=== PATIENT | male | born 1945 | race Caucasian/White ===

== ENCOUNTER → 2018-11-22 10:20 | Outpatient (CLI) | payer MEDICARE, OTHER, SELFPAY ==
--- NOTE | 2018-11-22 10:22 | DI.US.S_ITS ---
PROCEDURE: US PERIPH VENOUS LOW EXTREM RT INDICATIONS: RIGHT LEG SWELLING TECHNIQUE: Real-time imaging, as well as color and pulse Doppler interrogation, were performed of the lower extremity deep veins from the inguinal ligament to the popliteal fossa. COMPARISON: None. FINDINGS: The common femoral, femoral and popliteal veins are normally compressible, and free of intraluminal thrombus. Color and pulse Doppler demonstrate normal phasic intraluminal flow. There is normal augmentation response to distal compression maneuver. IMPRESSION: No deep venous thrombosis identified within the right lower extremity. Dictated by: Yeison CARR Interpreted: Brandie Camarillo MD on 11/22/2018 at 12:13 Approved by: Brandie Camarillo M.D. on 11/22/2018 at 14:10
== END ==
PROVIDERS: PCP Hospitalist; Visit Provider Hospitalist
DX: M79.89 Other specified soft tissue disorders (principal)
CPT/HCPCS: 93971

== ENCOUNTER → 2018-11-27 09:50 | Outpatient (CLI) | payer MEDICARE, OTHER, SELFPAY ==
[2018-11-27 10:17] LABS: BUN Creatinine Ratio 21.4 (6-22); Blood Urea Nitrogen 15 mg/dL (9-20); Estimated Glomerular Filt Rate > 60.0 mL/min (>60)
== END ==
PROVIDERS: PCP Hospitalist; Visit Provider Hospitalist
DX: I25.10 Atherosclerotic heart disease of native coronary artery without angina pectoris (principal); I65.29 Occlusion and stenosis of unspecified carotid artery
CPT/HCPCS: 36415; 82565; 84520

== ENCOUNTER → 2018-11-27 10:01 | Outpatient (CLI) | payer MEDICARE, OTHER, SELFPAY ==
--- NOTE | 2018-11-27 10:59 | DI.CT.S_ITS ---
PROCEDURE: CT ANGIO HEAD AND NECK INDICATIONS: vision loss TECHNIQUE: Pre-contrast 4.5 mm thick sections acquired from the foramen magnum to the vertex. After the administration of intravenous contrast, 1 mm thick sections acquired from the aortic arch through the [place] of [place]. Post-contrast 4.5 mm thick sections then re-acquired from the foramen magnum to the vertex. 3-dimensional htjrdsn-jtxyaiwkh-cckxxahyrw (MIP) and/or volume rendering reformats were acquired of the central intracranial vasculature and neck separately. COMPARISON: None. FINDINGS: Image quality: Excellent. BRAIN: The ventricular system and cortical sulci demonstrate atrophy, consistent for the patient's stated age. There are areas of hypodensity within the periventricular and subcortical white matter. There is no acute intra-or extra axial fluid collection. Old lacunar ischemia is noted in the left basal ganglia. No acute hemorrhage, mass lesion or midline shift. Brainstem is unremarkable. Globes are symmetrical. Sinuses are aerated. Osseous structures are intact. . HEAD CT ANGIOGRAPHY: Anterior circulation: The anterior circulation, including the anterior cerebral, as well as the internal carotid arteries demonstrates no areas of hemodynamically significant stenosis, vascular occlusion or aneurysmal dilation. There is occlusion of the left middle cerebral artery at its origin. Very minimal appearance partially visualized atretic middle cerebral artery vasculature is noted. 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 Posterior circulation: The posterior circulation demonstrates a vertebral artery codominance. Basilar artery and posterior cerebral arteries demonstrate no areas of hemodynamically significant stenosis, vascular occlusion or aneurysmal dilation. Posterior communicating arteries are within normal limits. NECK CT ANGIOGRAPHY: The origins of the left and right common and external carotid arteries demonstrate no areas of hemodynamically significant stenosis, vascular occlusion or aneurysmal dilation. There is an approximate 1.5 cm focus of high grade stenosis, with short segment near-complete occlusion in the proximal right internal carotid artery. Significant vascular calcifications are present. There is an approximate 7 mm focus of high grade stenosis/near occlusion at the origin of the left internal carotid artery with significant vascular calcifications. Origins of the left and right vertebral arteries demonstrate no areas of hemodynamically significant stenosis, vascular occlusion or aneurysmal dilation. Aortic arch demonstrates conventional anatomy. Limited, visualized portions left subclavian vasculature demonstrate a questionable focus of mural thrombus versus artifact approximately 3.4 cm from the origin of the aorta. Lung apices demonstrate prominent areas of peripheral bulla formation. CT chest may be obtained for further evaluation as indicated. IMPRESSION: 1. 1. No acute intracranial process. 2. Mild to moderate atrophy and chronic microvascular ischemic changes. 3. Bilateral high grade stenosis with areas of near occlusion in the proximal internal carotid arteries bilaterally as above. 4. 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 There is no surrounding parenchymal appearance of infarction. The above findings were discussed with Dr. Rama Pressley on 11/26/18 3:45pm. Any quantitative measurements of stenosis were performed using NASCET criteria. Dictated by: Brandie Camarillo M.D. on 11/27/2018 at 15:27 Approved by: Brandie Camarillo M.D. on 11/27/2018 at 15:51
== END ==
PROVIDERS: PCP Hospitalist; Visit Provider Hospitalist
DX: H54.7 Unspecified visual loss (principal); I65.23 Occlusion and stenosis of bilateral carotid arteries; I66.02 Occlusion and stenosis of left middle cerebral artery; I25.10 Atherosclerotic heart disease of native coronary artery without angina pectoris
CPT/HCPCS: 36415; 70496; 70498; 82565; 84520; Q9967

== ENCOUNTER → 2018-11-29 19:21 | Outpatient (CLI) | payer MEDICARE, OTHER, SELFPAY | PROVIDERS: Family Provider Hospitalist; PCP Hospitalist; Visit Provider Hospitalist | DX: I99.9 Unspecified disorder of circulatory system (principal); Z53.20 Procedure and treatment not carried out because of patient's decision for unspecified reasons ==

== ENCOUNTER → 2019-04-30 12:48 | Outpatient (CLI) | payer MEDICARE, OTHER, SELFPAY ==
[2019-05-06 09:43] LABS: Fecal Immunochemical Test NOT DETECTED (NOT DETECTED)
== END ==
PROVIDERS: PCP Hospitalist; Visit Provider Hospitalist
DX: I10 Essential (primary) hypertension (principal)
CPT/HCPCS: 82274

== ENCOUNTER 2019-05-20 09:32 | Day surgery (SDC) | payer MEDICARE, OTHER, SELFPAY ==
[2019-05-20] VITALS (8 sets, daily range): BP systolic 97–144; BP diastolic 50–68; PULSE 55–68; RESP 8–19; TEMP 36.4–36.6; O2SAT 97–100; BMI 33.1
--- NOTE | 2019-05-20 | PATH_ITS ---
[facility] Accession Number: [id number] . 01 Material submitted: . rectum - RECTAL POLYP . 02 Diagnosis: Rectum, Polyp: Tubulovillous adenoma, fragmented. Negative for high-grade dysplasia or malignancy. [facility] 05/21/2019 1540 Local . 02 Electronically signed: . Roosevelt Adair MD, PhD, Pathologist NPI- [id number] . 01 Gross description: . RECTAL POLYP: Received in formalin are multiple fragment(s) of [place], soft tissue measuring 0.1 x 0.1 x 0.1 cm to 1.5 x 1.0 x 0.7 cm which is entirely submitted and submitted entirely in 3 cassette(s) /DM 05/20/2019 2217 Local . 02 Pathologist provided ICD-10: D12.8 . 02 CPT . 464299 Performed at: 01 [facility] [address] [facility], [place], [place] [id number] MD Helio Haque MD Phone: [phone] Performed at: 02 [facility] [place] [address] [place], [place] [id number] MD Tammie Yates MD Phone: [phone]
[2019-05-20] MEDS: SODIUM CHLORIDE 0.9% 1,000 ML 200 ML IV ×2 (10:19→11:33)
--- NOTE | 2019-05-20 10:36 | PM.PREOP ---
Pre-operative Note Interval Note History & Physical reviewed/Exam performed by Physician: Yes Changes to H&P: No ASA Class (for procedural sedation): III
[2019-05-20] MEDS: PIPERACILLIN-TAZO 3.375 GM/50 ML FROZ.PIGGY IV (10:40)
[2019-05-20] MEDS: MIDAZOLAM 5 MG/5 ML VIAL IV (10:47)
[2019-05-20] MEDS: fentaNYL 250 MCG/5 ML INJ IV (10:47)
--- NOTE | 2019-05-20 11:31 | PM.OP.ENDO ---
Operative Date/Time/Diagnoses Date of procedure: 05/20/19 Time of procedure: 11:31 Pre-op diagnosis: Screening colonoscopy Post-op diagnosis: same Procedure & Clinicians Study performed: Colonoscopy Same procedure as scheduled: Yes Indications: 73-year-old male last colonoscopy 10 years ago normal presents for routine screening. Surgeon: Joaquin Chaudhary Procedure Notes SCOAP/Timeout: Performed Procedure in detail: Patient placed in left lateral decubitus position. Time out was performed. Procedural sedation was administered with Versed and Fentanyl. A rectal exam demonstrated no external hemorrhoids no internal masses. Colonoscopy scope was placed into the rectum and advanced through the colon to the cecum. The ileocecal valve was identified. The scope was then slowly withdrawn examining colon thoroughly in all directions. The colonoscopy was notable for the following 1. Sigmoid diverticulosis 2. 4 cm sessile adenomatous appearing polyp at 15 cm from the anal verge. Removed with snare electrocautery in multiple large pieces. Cauterized base of polyp given currently on Plavix. Hemostatic The site of the polyp was tattooed with 4 mL of methylene blue. 3. Quality of prep fair Scope withdrawal time: 30 Sedation minutes: 45 Findings: polyp Specimen(s): other (Polyp) Impression: Rectal polyp Post-procedure Recommendations: Other recommendation (Will likely require referral to Colorectal surgery for completion polypectomy based on pathology) Disposition: same day surgery
--- NOTE | 2019-05-20 11:53 | SUR.PHASEI ---
Denies nausea, pain, light-headedness, or dizziness when HOB elevated. Coffee given.
--- NOTE | 2019-05-20 12:42 | SUR.PHASEII ---
Dr natividad sevilla, returned call, asked aout pts f/u, informed pt of what was said. Both and pt voiced an understanding. Pt left when ready and left in stable condition.
== END 2019-05-20 12:39 | disposition home or self-care (01) ==
PROVIDERS: PCP Hospitalist; Visit Provider Surgery
PROC: 0DJD8ZZ Inspection of Lower Intestinal Tract, Via Natural or Artificial Opening Endoscopic (ICD-10-PCS; CPT 45378; principal; 2019-05-20 11:00)
DX: Z12.11 Encounter for screening for malignant neoplasm of colon (principal); Z79.01 Long term (current) use of anticoagulants; I25.10 Atherosclerotic heart disease of native coronary artery without angina pectoris; I10 Essential (primary) hypertension; E78.5 Hyperlipidemia, unspecified; I73.9 Peripheral vascular disease, unspecified; I73.89 Other specified peripheral vascular diseases; D12.8 Benign neoplasm of rectum; K57.30 Diverticulosis of large intestine without perforation or abscess without bleeding
CPT/HCPCS: 45385; 45381; 99152; 99153; J2250; J2543; J3010